=== PATIENT | male | born 1995 | race African-American/Black ===

== ENCOUNTER 2020-04-05 00:28 | Emergency (ER) | payer MEDICAID ==
[~2020-04-05] VITALS: Ht 185.4 cm; Wt 120.2 kg
[~2020-04-05 00:28] MED LIST: NORPTMEDS CO
[2020-04-05 01:00] VITALS: BP 121/77
[2020-04-05] MEDS ORDERED: ONDANSETRON ODT 4 MG TAB PO ONE ×2 (01:19→01:30)
[2020-04-05 01:53] LABS: Hemoglobin 16.5 g/dL (13.5-17.5)
[2020-04-05 01:55] LABS: Hematocrit 47.7 % (41.0-53.0); Mean Corpuscular Hemoglobin 29.7 pg (28.0-32.0); Mean Corpuscular Hgb Conc. 34.6 g/dL (32.0-36.0); Mean Corpuscular Volume 85.9 fL (80.0-100.0); Red Blood Cells 5.55 10^6/uL (4.5-5.90); Red Cell Distribution Width 13.2 % (11.8-14.3)
[2020-04-05 02:12] LABS: Albumin 4.7 g/dL (3.4-5.0); BUN/Creatinine Ratio 6.8; Calcium 9.7 mg/dL (8.5-10.1); Potassium 3.6 mmol/L (3.5-5.1)
[2020-04-05 02:15] LABS: Bilirubin, Total 1.7 mg/dL (0.2-1.0); Total Protein 8.4 g/dL (6.4-8.2)
[2020-04-05] MEDS ORDERED: SODIUM CHLORIDE 0.9% 500 ML IV ONE (02:15)
[2020-04-05 02:19] LABS: White Blood Cell 6.8 10^3/uL (4.4-10.8)
[2020-04-05 02:20] LABS: Platelet Count (auto) 165 10^3/uL (140-450)
[2020-04-05 02:22] LABS: Basophils % (manual) 0 (0.0-2.0); Blast Cells 0; Eosinophils % (manual) 0 (0-7); Metamyelocytes % 0; Myelocytes % 0; Promyelocytes % 0; Reactive Lymphocytes 0
[2020-04-05 06:54] LABS: Band Neutrophils % (manual) 3; Lymphocytes % (manual) 12 (10.0-50.0); Monocytes % (manual) 7 (0-12)
== END 2020-04-05 04:39 | disposition home or self-care (01) ==
LOC: ER 00:31
DX: J10.00 Influenza due to other identified influenza virus with unspecified type of pneumonia (principal); J01.00 Acute maxillary sinusitis, unspecified; Z20.828 Contact with and (suspected) exposure to other viral communicable diseases
CPT/HCPCS: 36415; 71045; 80053; 83690; 85007; 85027; 87426; 96360; 99284; J7030; Q0162

== ENCOUNTER 2020-05-13 15:44 | Emergency (ER) | payer MEDICAID ==
[~2020-05-13] VITALS: Ht 185.4 cm; Wt 112.5 kg
[2020-05-13 15:46] VITALS: BP 150/80
== END 2020-05-13 18:35 | disposition left against medical advice (07) ==
LOC: ER 15:47
DX: R11.2 Nausea with vomiting, unspecified (principal); Z53.21 Procedure and treatment not carried out due to patient leaving prior to being seen by health care provider